=== PATIENT | male | born 1945 ===

== ENCOUNTER 2022-07-31 20:10 | Emergency (ER) | payer OTHER ==
[~2022-07-31] VITALS: Ht 172.7 cm; Wt 95.5 kg
[2022-07-31 20:14] VITALS: BP 139/118
== END 2022-07-31 21:05 | disposition left against medical advice (07) ==
LOC: ER 20:10
DX: R07.81 Pleurodynia (principal); Z53.21 Procedure and treatment not carried out due to patient leaving prior to being seen by health care provider; V87.7XXA Person injured in collision between other specified motor vehicles (traffic), initial encounter; Y93.89 Activity, other specified; Y92.89 Other specified places as the place of occurrence of the external cause; Y99.8 Other external cause status
CPT/HCPCS: 99281